=== PATIENT | male | born 1975 ===

== ENCOUNTER 2017-09-16 16:52 | Emergency (ER) | payer MEDICAID ==
[2017-09-16 17:08] VITALS: BP 158/95; TEMP 98
[2017-09-16 17:39] VITALS: PULSE 90; RESP 16; O2SAT 96
--- NOTE | 2017-09-16 18:36 | ED PDOC ---
HPI: General Adult Time Seen by Provider: 09/16/17 17:13 Chief Complaint (Nursing): Male Genitourinary History Per: Patient Additional Complaint(s): Pt. states for the past 2-3 days he's had a pain and swelling to the L thigh. Yesterday he applied a warm compress over the area today it burst prompting ED visit. Reports pain has improved. Denies fever, trauma. Past Medical History Reviewed: Historical Data, Nursing Documentation, Vital Signs Vital Signs: Last Vital Signs Temp 98 F 09/16/17 17:06 Pulse 90 09/16/17 17:33 Resp 16 09/16/17 17:33 BP 158/95 H 09/16/17 17:06 Pulse Ox 96 09/16/17 17:33 - Medical History PMH: Asthma, Diabetes (type II), Hypercholesterolemia - Family History Family History: States: No Known Family Hx - Home Medications Home Medications: Ambulatory Orders Medication Instructions Recorded Albuterol HFA [Ventolin HFA 90 2 puff IH [id number] PRN #0 puff 05/06/16 mcg/actuation (8 g)] MetFORMIN [glucoPHAGE] 1,000 mg PO DAILY 05/06/16 Promethazine DM [Phenergan DM 5 ml PO Q8 PRN #120 ml 05/06/16 Syrup] levoFLOXacin [Levaquin] 500 mg PO DAILY #10 tab 05/16/16 Cephalexin [cephalexin] 500 mg PO Q6 #28 cap 09/16/17 Sulfamethoxazole/Trimethoprim 2 tab PO BID #28 tab 09/16/17 [Bactrim DS 800 mg-160 mg] - Allergies Allergies/Adverse Reactions: Allergies Allergy/AdvReac Type Severity Reaction Status Date / Time No Known Allergies Allergy Verified 05/06/16 12:12 Review of Systems ROS Statement: Except As Marked, All Systems Reviewed And Found Negative Physical Exam - Physical Exam Appears: Positive for: Well, Non-toxic, No Acute Distress Skin: Positive for: Normal Color, Warm. Negative for: Rash Extremity: Positive for: Other (L medial superior thigh with drained mass without erythema or dishcarge) Neurologic/Psych: Positive for: Alert, Oriented - ECG O2 Sat by Pulse Oximetry: 96 - Progress ED Course And Treament: Repeat HR: 90 as per RN. Pt. advised to apply warm compresses to area and to return to ED if fever develops or mass increases in size. Disposition - Clinical Impression Clinical Impression: Abscess - Patient ED Disposition Is Patient to be Admitted: No - Disposition Referrals: [facility] [Outside] Disposition: Routine/Home Disposition Time: 17:30 Condition: STABLE Prescriptions: Cephalexin [cephalexin] 500 mg PO Q6 #28 cap Sulfamethoxazole/Trimethoprim [Bactrim DS 800 mg-160 mg] 2 tab PO BID #28 tab Instructions: Boil (DC) Forms: [employer] ([place]ghan) Print Language: [place]LAND[place]
== END 2017-09-16 17:40 | disposition home or self-care (01) ==
LOC: H.ER 16:52
DX: E11.9 Type 2 diabetes mellitus without complications (principal); E78.00 Pure hypercholesterolemia, unspecified; J45.909 Unspecified asthma, uncomplicated; Z79.84 Long term (current) use of oral hypoglycemic drugs